=== PATIENT | male | born 1990 | race Caucasian/White ===

== ENCOUNTER 2021-04-22 20:20 | Emergency (ER) | payer SELFPAY ==
[~2021-04-22] VITALS: Ht 185.4 cm; Wt 86.4 kg
[2021-04-22 20:34] VITALS: BP 131/80
== END 2021-04-22 22:48 | disposition home or self-care (01) ==
LOC: EMS 20:24
DX: K64.4 Residual hemorrhoidal skin tags (principal)
CPT/HCPCS: 99282; Z7502

== ENCOUNTER 2021-06-22 12:25 | Emergency (ER) | payer SELFPAY ==
[~2021-06-22] VITALS: Ht 185.4 cm; Wt 88.6 kg
[2021-06-22] MEDS ORDERED: BUPIVACAINE HCL/PF 0.25% 10 ML VIAL SQ ONE (12:45)
[2021-06-22] MEDS ORDERED: PERTUSS(ACELL),DIPH,TET VAC/PF 0.5 ML SYRINGE IM. ONE (12:45)
[2021-06-22 13:00] VITALS: BP 156/98
== END 2021-06-22 13:36 | disposition home or self-care (01) ==
LOC: EMS 12:27
DX: S61.022A Laceration with foreign body of left thumb without damage to nail, initial encounter (principal); F17.210 Nicotine dependence, cigarettes, uncomplicated; W45.8XXA Other foreign body or object entering through skin, initial encounter; Y93.89 Activity, other specified; Y92.89 Other specified places as the place of occurrence of the external cause; Y99.8 Other external cause status
CPT/HCPCS: 12001; 90471; 90715; 99283; J3490

== ENCOUNTER 2021-06-23 00:55 | Emergency (ER) | payer SELFPAY ==
[~2021-06-23] VITALS: Ht 185.4 cm; Wt 88.6 kg
[2021-06-23 03:00] VITALS: BP 127/69
== END 2021-06-23 04:19 | disposition home or self-care (01) ==
LOC: EMS 00:56
DX: T81.30XD Disruption of wound, unspecified, subsequent encounter (principal); Y83.8 Other surgical procedures as the cause of abnormal reaction of the patient, or of later complication, without mention of misadventure at the time of the procedure; Y92.89 Other specified places as the place of occurrence of the external cause
CPT/HCPCS: 12020; 99282; Z7502

== ENCOUNTER 2021-07-02 18:33 | Emergency (ER) | payer SELFPAY ==
[~2021-07-02] VITALS: Ht 185.4 cm; Wt 81.8 kg
[2021-07-02 18:59] VITALS: BP 153/76
== END 2021-07-02 19:30 | disposition home or self-care (01) ==
LOC: EMS 18:33
DX: S61.012D Laceration without foreign body of left thumb without damage to nail, subsequent encounter (principal); F17.290 Nicotine dependence, other tobacco product, uncomplicated; Z48.02 Encounter for removal of sutures; W45.8XXD Other foreign body or object entering through skin, subsequent encounter
CPT/HCPCS: 99282; Z7502